=== PATIENT | male | born 1955 | race Caucasian/White ===

== ENCOUNTER 2024-10-15 12:35 | Emergency (ER) | payer MEDICARE, MEDICAID, SELFPAY ==
[2024-10-15 13:23] VITALS: BP 134/74; PULSE 89; RESP 18; TEMP 36.6; O2SAT 99; BMI 27.3
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
[2024-10-15] MEDS: IBUPROFEN TAB 400 MG TABLET 800 MG PO (13:44)
[2024-10-15] MEDS: LIDOCAINE HCL 1% 20 ML VIAL 10 ML INFL (13:46)
== END 2024-10-15 14:23 | disposition home or self-care (01) ==
LOC: SERX 14:31
PROVIDERS: Emergency Provider Emergency Medicine
DX: S81.811A Laceration without foreign body, right lower leg, initial encounter (principal); V28.09XA Other motorcycle driver injured in noncollision transport accident in nontraffic accident, initial encounter
CPT/HCPCS: 12002; 99283; J3490; A9270